=== PATIENT | male | born 1970 | race Hispanic/Latino ===

== ENCOUNTER 2018-09-24 17:01 | Emergency (ER) | payer OTHER, MEDICAID ==
[~2018-09-24] VITALS: Ht 165.1 cm; Wt 63.6 kg
[2018-09-24] MEDS ORDERED: METFORMIN500 MG PO (17:12)
[2018-09-24] MEDS ORDERED: MOTRIN400 MG PO (17:59)
[2018-09-24 18:09] VITALS: BP 155/90
== END 2018-09-24 18:15 | disposition home or self-care (01) | DRG 125 ==
LOC: ED 17:01
PROC: 0HQ1XZZ Repair Face Skin, External Approach (ICD-10-PCS; principal; 2018-09-24)
DX: S01.111A Laceration without foreign body of right eyelid and periocular area, initial encounter (principal); W18.30XA Fall on same level, unspecified, initial encounter; Y93.89 Activity, other specified; Y92.89 Other specified places as the place of occurrence of the external cause; Y99.0 Civilian activity done for income or pay